=== PATIENT | female | born 1965 | race Caucasian/White ===

== ENCOUNTER 2024-11-17 18:39 | Emergency (ER) | payer SELFPAY ==
[~2024-11-17] VITALS: Ht 162.6 cm; Wt 82.0 kg
[2024-11-17 18:58] VITALS: BP 183/94; PULSE 111; RESP 20; TEMP 97.6; O2SAT 96
[2024-11-17 19:53] LABS: BASOPHILS % (AUTO) 0.4 % (0-1); EOSINOPHILS # (AUTO) 0.1 X10'3 (0-0.9); EOSINOPHILS % (AUTO) 0.6 % (0-6); HEMATOCRIT 43.8 % (35.0-45.0); HEMOGLOBIN 14.4 g/dl (12.0-16.0); LYMPHOCYTES # (AUTO) 1.7 X10'3 (1.1-4.8); LYMPHOCYTES % (AUTO) 15.9 % (21-51); MEAN CORPUSCULAR HEMOGLOBIN 31.7 PG (27.0-31.0); MEAN CORPUSCULAR HGB CONC 32.9 g/dL (33.0-36.5); MEAN CORPUSCULAR VOLUME 96.5 FL (78-98); MONOCYTES # (AUTO) 0.9 X10'3 (0-0.9); MONOCYTES % (AUTO) 8.6 % (2-12); NEUTROPHILS # (AUTO) 8.1 X10'3 (1.8-7.7); NEUTROPHILS % (AUTO) 74.5 % (42-75); PLATELET COUNT 468 X10'3 (140-440); RED BLOOD COUNT 4.54 X10'6 (4.20-5.60); RED CELL DISTRIBUTION WIDTH 15.7 % (11.5-14.5); WHITE BLOOD COUNT 10.9 X10'3 (4.5-11.0)
[2024-11-17 20:03] LABS: APTT 28 SECONDS (22-32); INR 1.2 INR
--- NOTE | 2024-11-17 20:05 | ELECTROCARDIOGRAPH REPORT ---
[facility] Test Date: 2024-11-17 Test Time: 20:03:02 Pat Name: CLAUDIO RAMIREZ Department: PSYCHIATRIC-ER Room: Gender: F [employer] Supervisor: : 1965 Requested By: TIAN ABARCA Order Number: [id number] Reading MD: Dr. Jamey Kaba Measurements Intervals [place] Rate: 119 P: 63 NC: 161 QRS: -76 QRSD: 81 T: 34 QT: 320 QTc: 451 Interpretive Statements Sinus tachycardia Inferior infarct, old Anterior infarct, old Electronically Signed On 11-18-2024 6:40:[address] Jamey Kaba Please click the below link to view image of tracing.
[2024-11-17 20:06] LABS: ANION GAP 13 (8-16); BLOOD UREA NITROGEN 14 MG/DL (7-18); CHLORIDE 104 MMOL/L (99-107); GLUCOSE 111 MG/DL (70-104); POTASSIUM 3.5 MMOL/L (3.5-5.1); SODIUM 137 MMOL/L (135-145); TOTAL CARBON DIOXIDE 19.7 MMOL/L (24-32)
[2024-11-17 20:07] LABS: ALANINE AMINOTRANSFERASE 110 U/L (12-78); ALBUMIN 2.5 G/DL (3.4-5.0); ALBUMIN/GLOBULIN RATIO 0.6 (1.1-1.5); ALKALINE PHOSPHATASE 218 IU/L (46-116); ASPARTATE AMINO TRANSFERASE 30 U/L (10-37); BILIRUBIN,TOTAL 1.8 MG/DL (0.1-1.0); BUN/CREATININE RATIO 12.4 (10.0-20.0); C-REACTIVE PROTEIN 1.79 MG/DL (0.0-0.5); CALCIUM 8.7 MG/DL (8.5-10.1); CREATININE 1.13 MG/DL (0.40-0.90); eCRCL 47 ML/MIN; eGFR 49 ML/MIN
--- NOTE | 2024-11-17 20:14 | RADIOLOGY REPORT ---
Clinical History sepsis Comparison None Without Contrast CLAUDIO RAMIREZ, [id number] Technique: Single view PA upright chest x-ray Findings: The lungs are unremarkable. No pleural abnormality. The cardiomediastinal silhouette is unremarkable for an AP view. No acute osseous abnormality. The imaged part of the upper abdomen is unremarkable. Impression: No evidence of acute cardiopulmonary disease This report was electronically signed by Gela Jacobson MD on 11/17/2024 8:11:44 PM.
--- NOTE | 2024-11-17 20:40 | RADIOLOGY REPORT ---
EXAM: CT CT LOWER EXTREMITY INDICATION: wound lower leg TECHNIQUE: Axial images of left lower extremity have been obtained along with coronal and sagittal re formatted images. All CT scans at this facility use dose modulation, iterative reconstruction, and/or weight based dosing when appropriate to reduce radiation dose to as low as reasonably achievable. COMPARISON: None FINDINGS: BONES: Severe degenerative change of the left midfoot which may be compatible with Charcot arthropath y. No definitive CT evidence of osteomyelitis. No acute fracture or aggressive focal osseous lesion allowing for limitation from susceptibility artifact hardware of the proximal tibialis and distal fe murs compatible with knee replacement with constrained component. Severe collapse of the hindfoot and midfoot with severe pes planus and irregularity of the talus. Superimposed osteomyelitis in this reg ion is difficult to exclude given the extensive cystic/erosive appearance and subsequent overlap of i maging findings. MUSCLES: No abnormal attenuation. JOINT SPACES: No joint effusion.. OTHER: Extensive circumferential subcutaneous tissue edema. No drainable fluid collection. IMPRESSION: 1. No definitive CT evidence of osteomyelitis allowing for limitation. 2. Diffuse suspected cellulitis and/or bland edema. No drainable fluid collection /abscess. 3. Suspected midfoot to hindfoot Charcot arthropathy with subsequent severe collapse /vertical orient ation of the talus. Difficult to exclude osteomyelitis in this region given overlap of imaging tessie pham.
== END 2024-11-17 22:59 | disposition left against medical advice (07) ==
LOC: ER 18:40
DX: S81.812A Laceration without foreign body, left lower leg, initial encounter (principal); I49.8 Other specified cardiac arrhythmias; Z53.21 Procedure and treatment not carried out due to patient leaving prior to being seen by health care provider; X58.XXXA Exposure to other specified factors, initial encounter; Y93.89 Activity, other specified; Y92.89 Other specified places as the place of occurrence of the external cause; Y99.8 Other external cause status
CPT/HCPCS: 36415; 71045; 73700; 80053; 83605; 84145; 84484; 85025; 85610; 85651; 85730; 86140; 87040; 93005

== ENCOUNTER 2024-11-19 13:08 | Inpatient (IN) | payer BC ==
[~2024-11-19] VITALS: Ht 162.6 cm; Wt 83.1 kg
[2024-11-19] MEDS: normal saline 1000ML IV soln IV ONE (14:07)
--- NOTE | 2024-11-19 14:08 | ELECTROCARDIOGRAPH REPORT ---
[facility] Test Date: 2024-11-19 Test Time: 14:05:58 Pat Name: CLAUDIO RAMIREZ Department: [facility]-ER Patient ID: [id number] Room: [place] [address] Gender: F Certified Medication Technician: : 1965 Requested By: TIAN ABRACA Order Number: [id number] Reading MD: Dr. Jamey Kaba Measurements Intervals [place] Rate: 70 P: 29 ND: 185 QRS: -14 QRSD: 102 T: 12 QT: 443 QTc: 479 Interpretive Statements Sinus rhythm Borderline low voltage, extremity leads Consider anterior infarct Electronically Signed On 11-26-2024 11:04:[address] Jamey Kaba Please click the below link to view image of tracing.
--- NOTE | 2024-11-19 14:41 | RADIOLOGY REPORT ---
DI CHEST,SINGLE VIEW, HISTORY: SEPSIS COMPARISON: DI CHEST,SINGLE VIEW on DOS: 11/17/24 DI CHEST,SINGLE VIEW on DOS: 11/17/24 TECHNICAL DATA: 1 view of the chest was obtained. FINDINGS: Lines and tubes: None Cardiomediastinal silhouette: normal Pulmonary vasculature: normal Lung expansion: normal Lung airspace: normal Lung interstitium: normal Pleura: normal Pneumothorax: no Bones: Unremarkable Other: no IMPRESSION: No acute intrathoracic abnormality.
[2024-11-19 14:45] LABS: BASOPHILS % (AUTO) 0.1 % (0-1); EOSINOPHILS % (AUTO) 0.2 % (0-6); HEMATOCRIT 38.8 % (35.0-45.0); HEMOGLOBIN 12.8 g/dl (12.0-16.0); LYMPHOCYTES # (AUTO) 0.8 X10'3 (1.1-4.8); LYMPHOCYTES % (AUTO) 6.6 % (21-51); MEAN CORPUSCULAR HEMOGLOBIN 31.8 PG (27.0-31.0); MEAN CORPUSCULAR HGB CONC 32.8 g/dL (33.0-36.5); MEAN CORPUSCULAR VOLUME 96.9 FL (78-98); MEAN PLATELET VOLUME 7.4 FL (7.4-10.4); MONOCYTES # (AUTO) 0.9 X10'3 (0-0.9); MONOCYTES % (AUTO) 7.3 % (2-12); NEUTROPHILS # (AUTO) 10.3 X10'3 (1.8-7.7); NEUTROPHILS % (AUTO) 85.8 % (42-75); PLATELET COUNT 371 X10'3 (140-440); RED BLOOD COUNT 4.01 X10'6 (4.20-5.60); RED CELL DISTRIBUTION WIDTH 15.7 % (11.5-14.5)
[2024-11-19 15:01] LABS: APTT 29 SECONDS (22-32); INR 1.3 INR
[2024-11-19 15:07] LABS: ALANINE AMINOTRANSFERASE 103 U/L (12-78); ALBUMIN 1.8 G/DL (3.4-5.0); ALBUMIN/GLOBULIN RATIO 0.5 (1.1-1.5); ALKALINE PHOSPHATASE 195 IU/L (46-116); ANION GAP 13 (8-16); ASPARTATE AMINO TRANSFERASE 262 U/L (10-37); BILIRUBIN,TOTAL 1.3 MG/DL (0.1-1.0); BLOOD UREA NITROGEN 14 MG/DL (7-18); BUN/CREATININE RATIO 12.7 (10.0-20.0); CALCIUM 7.8 MG/DL (8.5-10.1); CHLORIDE 106 MMOL/L (99-107); GLUCOSE 142 MG/DL (70-104); POTASSIUM 3.2 MMOL/L (3.5-5.1); SODIUM 138 MMOL/L (135-145); TOTAL CARBON DIOXIDE 18.8 MMOL/L (24-32); TOTAL PROTEIN 5.5 G/DL (6.4-8.2); eCRCL 48 ML/MIN; eGFR 51 ML/MIN
[2024-11-19 15:12] LABS: C-REACTIVE PROTEIN 5.44 MG/DL (0.0-0.5); MAGNESIUM 1.4 MG/DL (1.5-2.4); PRO BRAIN NATRIURETIC PEPTIDE 819 PG/ML (0-125)
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
[2024-11-19] MEDS: clindamycin 300mg/D5W 50mL 50 ML IV STA (16:12)
[2024-11-19] MEDS: metoclopramide 5 mg/ml inj IV ONE ×2 (16:13→20:15)
[2024-11-19] MEDS: HYDROmorphone 1 mg/ml syringe IV ONE ×2 (16:13→20:15)
[2024-11-19] MEDS: diphenhydrAMINE 50 mg/ml inj IV ONE ×2 (16:14→20:15)
[2024-11-19] MEDS: piperacillin/tazo 3.375gm/50ml 50 ML IV STA (18:56)
[2024-11-19 20:06] LABS: BILIRUBIN,URINE SMALL (Neg); CLARITY,URINE CLEAR (Clear); COLOR,URINE YELLOW (Yellow); GLUCOSE, URINE NEGATIVE (Neg); KETONES,URINE NEGATIVE (Neg); LEUKOCYTE ESTERASE ,URINE NEGATIVE (Neg); NITRITES, URINE NEGATIVE (Neg); OCCULT BLOOD,URINE NEGATIVE (Neg); PROTEIN,URINE TRACE mg/dl (Neg)
[2024-11-19 20:11] LABS: UA COLLECTION TYPE NON-SPECIFIED
[2024-11-19 20:13] LABS: BACTERIA,URINE 1+ /HPF (Neg); RBC,URINE 0-2 /HPF (0-2); SQUAMOUS EPITHELIAL CELL,UR MANY /LPF (FEW); TRANSITIONAL EPI CELLS,URINE MODERATE /HPF; WBC,URINE 0-4 /HPF (0-4)
[2024-11-19] MEDS ORDERED: magnesium sulf-water 2g/50mL 50 ML IV PRN ×2 (20:45→23:30)
[2024-11-19] MEDS ORDERED: magnesium sulf-water 4G/100mL 100 ML IV PRN ×2 (20:45→23:30)
[2024-11-19] MEDS ORDERED: mag hydrox/Alum hydrox/simeth 30ml oral suspension PO PRN (20:45)
[2024-11-19] MEDS ORDERED: magnesium hydroxide 30ml (MOM) UD suspension PO PRN (20:45)
[2024-11-19] MEDS ORDERED: magnesium Cl slow-release 64mg tablet PO PRN ×2 (20:45→23:30)
[2024-11-19] MEDS ORDERED: acetaminophen 325mg tablet PO PRN (20:45)
[2024-11-19 21:17] LABS: ETHANOL < 10 MG/DL (<10)
[2024-11-19 21:34] LABS: URINE AMPHETAMINE SCREEN NEGATIVE (Neg); URINE BARBITUATE SCREEN NEGATIVE (Neg); URINE BENZODIAZEPINES SCREEN NEGATIVE (Neg); URINE CANNABINOID SCREEN NEGATIVE (Neg); URINE COCAINE SCREEN NEGATIVE (Neg); URINE METHADONE SCREEN NEGATIVE (Neg); URINE OPIATE SCREEN POSITIVE (Neg); URINE PHENCYCLIDINE SCREEN NEGATIVE (Neg)
[2024-11-19 21:35] LABS: HEMOGLOBIN A1C 5.2 % (4.5-6.2)
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
[2024-11-19] MEDS: vancomycin/NS 1 GM ADD-VANTAGE 250 ML IV SCH (22:20)
[2024-11-19] MEDS ORDERED: potassium Cl 20 mEq SR tablet PO PRN ×2 (23:30)
[2024-11-19] MEDS ORDERED: potassium Cl 40MEQ/1/2NS 520ml 520 ML IV PRN (23:30)
[2024-11-20] VITALS (7 sets, daily range): BP systolic 95–129; BP diastolic 48–65; PULSE 73–88; RESP 14–22; TEMP 97.4–98.9; O2SAT 95–100
[2024-11-20] MEDS: morphine 2 MG/ML inj. syringe IV PRN ×2 (00:51→04:07)
[2024-11-20] MEDS: normal saline 1000ml 1,000 ML IV SCH (00:51)
[2024-11-20] MEDS ORDERED: METO-411 PO (02:25)
[2024-11-20] MEDS ORDERED: GABA-1405 (02:25)
[2024-11-20] MEDS ORDERED: BUPR-480 (02:25)
[2024-11-20] MEDS ORDERED: OMEP40CA21 PO (02:25)
[2024-11-20] MEDS ORDERED: CYCL-1 PO (02:25)
[2024-11-20] MEDS ORDERED: VALS160T30 PO (02:25)
[2024-11-20] MEDS ORDERED: HYDR-3972 PO (02:25)
[2024-11-20] MEDS ORDERED: CYAN10007 IM (02:25)
[2024-11-20] MEDS ORDERED: ONDA-245 (02:25)
[2024-11-20] MEDS ORDERED: ESTR1TAB28 PO (02:25)
[2024-11-20] MEDS ORDERED: VALA100031 PO (02:25)
[2024-11-20] MEDS ORDERED: FURO20TA4 PO (02:25)
[2024-11-20] MEDS ORDERED: IBUP-1986 PO (02:25)
[2024-11-20] MEDS: piperacillin/tazo 4.5gm/100ml 100 ML IV SCH (03:02)
[2024-11-20 03:55] LABS: BASOPHILS % (AUTO) 0.3 % (0-1); EOSINOPHILS # (AUTO) 0.1 X10'3 (0-0.9); EOSINOPHILS % (AUTO) 0.7 % (0-6); HEMATOCRIT 41.6 % (35.0-45.0); HEMOGLOBIN 13.7 g/dl (12.0-16.0); LYMPHOCYTES # (AUTO) 0.6 X10'3 (1.1-4.8); LYMPHOCYTES % (AUTO) 5.1 % (21-51); MEAN CORPUSCULAR HEMOGLOBIN 31.9 PG (27.0-31.0); MEAN CORPUSCULAR HGB CONC 32.9 g/dL (33.0-36.5); MEAN CORPUSCULAR VOLUME 96.9 FL (78-98); MEAN PLATELET VOLUME 7.2 FL (7.4-10.4); MONOCYTES # (AUTO) 0.7 X10'3 (0-0.9); MONOCYTES % (AUTO) 5.7 % (2-12); NEUTROPHILS # (AUTO) 10.3 X10'3 (1.8-7.7); NEUTROPHILS % (AUTO) 88.2 % (42-75); PLATELET COUNT 348 X10'3 (140-440); RED BLOOD COUNT 4.29 X10'6 (4.20-5.60); RED CELL DISTRIBUTION WIDTH 15.9 % (11.5-14.5); WHITE BLOOD COUNT 11.6 X10'3 (4.5-11.0)
[2024-11-20] MEDS: potassium Cl 20 mEq SR tablet PO PRN ×2 (03:59→19:02)
[2024-11-20 04:17] LABS: ALANINE AMINOTRANSFERASE 251 U/L (12-78); ALBUMIN/GLOBULIN RATIO 0.5 (1.1-1.5); ALKALINE PHOSPHATASE 257 IU/L (46-116); ANION GAP 14 (8-16); ASPARTATE AMINO TRANSFERASE 840 U/L (10-37); BILIRUBIN,TOTAL 1.8 MG/DL (0.1-1.0); BLOOD UREA NITROGEN 14 MG/DL (7-18); BUN/CREATININE RATIO 13.5 (10.0-20.0); CHLORIDE 110 MMOL/L (99-107); CHOL/HDL RATIO 1.4 (0.00-4.99); CHOLESTEROL 98 MG/DL (0-200); CREATININE 1.04 MG/DL (0.40-0.90); GLUCOSE 98 MG/DL (70-104); HDL CHOLESTEROL 68 MG/DL (35-60); LDL CHOLESTEROL 25 MG/DL (50-100); MAGNESIUM 1.7 MG/DL (1.5-2.4); SODIUM 142 MMOL/L (135-145); TRIGLYCERIDES 55 MG/DL (20-135); eCRCL 51 ML/MIN; eGFR 54 ML/MIN
[2024-11-20] MEDS: pantoprazole 40mg Tablet.DR PO SCH (07:30)
--- NOTE | 2024-11-20 07:35 | RADIOLOGY REPORT ---
INDICATION: Ultrasound of your for possible cirrhosis TECHNIQUE: Multiple real-time sonographic images of the abdomen were obtained. COMPARISON: None FINDINGS: The liver is heterogeneous in echogenicity. The liver measures 18.4 cm. No intrahepatic bi liary ductal dilatation is noted. The gallbladder is surgically absent. The common bile duct measures 0.2 cm. The right kidney measures 9.8 cm. No hydronephrosis. The pancreas is obscured by bowel gas. The visualized portions of the IVC and aorta are grossly unremarkable. IMPRESSION: 1. Heterogeneous echotexture of the liver suggesting underlying parenchymal disease. No nodular conto ur appreciated. 2. Cholecystectomy. 3. No right hydronephrosis.
[2024-11-20] MEDS: K and/or MAG REPLACEMENT MC SCH (08:00)
[2024-11-20] MEDS ORDERED: K and/or MAG REPLACEMENT MC SCH (08:00)
[2024-11-20] MEDS: lactose-reduced food (Ensure High Protein) 237ml bottle PO SCH (08:00)
[2024-11-20] MEDS: docusate sod 100mg capsule PO SCH (08:00)
[2024-11-20] MEDS: aspirin 81mg, enteric-coated 1 TAB TABLET.DR PO SCH (08:31)
[2024-11-20] MEDS: atorvastatin 20mg tablet PO SCH (08:32)
[2024-11-20] MEDS: heparin, porcine 5000 units/ml vial SQ SCH (08:33)
--- NOTE | 2024-11-20 10:09 | VASCULAR REPORT ---
Bilateral lower extremity venous duplex Clinical History: Bilateral edema Comparison: None Technique: Duplex Doppler evaluation of the deep venous systems of both lower extremities from the common femora l veins to the popliteal veins including color Doppler and spectral/pulsed waveform analysis was perf ormed. Findings: RIGHT SIDE: The common femoral vein demonstrates appropriate compressibility and waveform variability . There is compressibility/patency of the great saphenous vein at the proximal thigh . The femoral vein demonstrates appropriate compressibility and waveform variability . The deep femoral vein demonstrates appropriate compressibility and waveform variability . The popliteal vein demonstrates appropriate compressibility and waveform variability . There is normal compressibility at the tibioperoneal trunk. LEFT SIDE: The common femoral vein demonstrates appropriate compressibility and waveform variability . There is compressibility/patency of the great saphenous vein at the proximal thigh . The femoral vein demonstrates appropriate compressibility and waveform variability . The deep femoral vein demonstrates appropriate compressibility and waveform variability . The popliteal vein demonstrates appropriate compressibility and waveform variability . There is normal compressibility at the tibioperoneal trunk. Impression: No right or left femoropopliteal venous thrombosis.
--- NOTE | 2024-11-20 10:09 | VASCULAR REPORT ---
Bilateral Lower Extremity Arterial Duplex Clinical History: Diminished pulses Comparison: None Technique: Duplex Doppler evaluation including color Doppler and spectral/pulsed waveform analysis of the lower extremity arteries was performed. Findings: RIGHT: Peak systolic velocities are less than 150 cm/sec The waveforms are multiphasic . LEFT: Peak systolic velocities are less than 150 cm/sec. Nonvisualization of the left peroneal artery. The waveforms are multiphasic. IMPRESSION: No hemodynamically significant stenosis based on peak systolic velocity criteria. REFERENCE VALUES, [facility]) vascular Imaging Lab Criteria: Peak systolic velocity rang es (in cm/sec) are as follows: <150 cm/s - <20 % stenosis 150-200 cm/s - 20-49% stenosis 200-300 cm/s - 50-75% stenosis >300 cm/s -> 75% stenosis
[2024-11-20] MEDS: sodium bicarbonate (8.4%) inj. 100 MEQ in dextrose 5%-water 1,000 ML IV SCH (10:22)
--- NOTE | 2024-11-20 11:02 | PROGRESS NOTE ---
Progress Note ID Providers to CC ~ Progress Note Progress Note: arterial doppler noted/needs leg debridement when cleared medically AMARIS ADAMS MD November 20, 2024 11:02
[2024-11-20] MEDS: potassium Cl 40MEQ/1/2NS 520ml 520 ML IV PRN (11:29)
--- NOTE | 2024-11-20 17:00 | PROGRESS NOTE- Residence ---
Progress Note - Resident Providers to CC Resident Creating Document: CARLOTA HERNÁNDEZ, SUZY CC: MONA SARMIENTO MD ~ Antibiotic Timeout Antibiotic Ordered?: Yes Subjective Patient examined at bedside. Patient seems to be in pain. Objective Vital Signs Date Time Temp Pulse Resp B/P (MAP) Pulse Ox O2 Delivery O2 Flow Rate FiO2 11/20/24 06:00 97.4 73 14 121/61 (81) 99 Room Air 11/19/24 17:00 0 Result Diagram: 11/20/24 0341 11/20/24 0341 General: Alert, awake, oriented, not in acute distress HEENT: PERRLA, no icterus, pallor, lymphadenopathy, carotid bruit Respiratory system: Bilateral vesicular breath sounds heard, no adventitious breath sounds CVS: S1-S2 heard, no murmurs/rubs/gallop GI: Soft, nontender, no organomegaly, no guarding/rigidity, bowel sounds present Neuro: No focal neurological deficits present Extremities: No edema cyanosis clubbing Musculoskeletal: Left lower leg Positive for a odorous and purulent discharge with macerated skin extending from the distal 3rd of the tibia extending to the ankle in encompassing the entire lower extremity circumferentially. Positive for significant tenderness to palpation. Bluish green discoloration present. Skin: Warm and dry Coagulation Studies Laboratory Tests Test 11/19/24 14:20 Prothrombin Time 13.0 SECONDS (9.0-12.0) H INR International Normalized Ratio 1.3 INR Activated Partial Thromboplast Time 29 SECONDS (22-32) Coagulation Comments Assessment Assessment This is a 59-year-old female with past medical history of hypertension, rheumatoid arthritis came to the ER with a chief complaint of left lower leg wound which appears to be infected. Patient is being admitted for sepsis secondary to infected wound. Dr. Best has been consulted for debridement. Plan Plan Left lower leg infected wound Chronic nonhealing ulcer Sepsis secondary to above, POA Charcot arthropathy WBC count improving, elevated procalcitonin and CRP, continue to follow daily prolactin Normal lactic acid, ESR Vascular and arterial ultrasound reveals no significant abnormalities like stenosis or no flow Continue IV fluids at 50 cc/hour Continue IV vancomycin and Zosyn (day two) Wound care Follow up with the wound and blood culture Dr. Best recommended medical clearance before debridement, probable surgery scheduled after 8:00 a.m. tomorrow PAD, ruled out LAURENCE, vascular and arterial ultrasounds ordered. Continue atorvastatin Elevated proBNP Probably inflammatory ProBNP is 819 Echo: EF: 70-75%, LVOT obstruction Patient does not appear to be fluid overloaded, on NS@ 50 mL/hour for sepsis. Elevated transaminases Elevated alkaline phosphatase Hyperbilirubinemia Probably reactive Continue to monitor CMP If continues to be elevated we will do further workup Ultrasound reveals parenchymal disease of the Hypomagnesemia Hypokalemia Magnesium and potassium improving On potassium replacement protocol Follow up with repeat labs. History of hypertension Currently blood pressure is in the normal range Continue patient's home medication valsartan once the med rec is done. Hypoalbuminemia Albumin 1.8 History of peripheral neuropathy Continue patient's home medication gabapentin once the med rec is done Code status: DNR DVT prophylaxis: Heparin Diet: Regular diet Med rec pending Disposition: Continue care in surgical floor, probable surgery after medical clearance, NPO after 8:00 a.m. Carlota Hernández MD Internal Medicine, PGY 1 Date of Service: November 20, 2024 Billing Provider: MONA SARMIENTO MD Common Visit Codes: [id number] INP/OBS CARE(HIGH) CARLOTA HERNÁNDEZ, RES November 20, 2024 17:00 MONA SARMIENTO MD November 20, 2024 18:43
[2024-11-21] VITALS (21 sets, daily range): BP systolic 91–128; BP diastolic 48–80; PULSE 59–84; RESP 12–18; TEMP 96.6–98.7; O2SAT 93–100
[2024-11-21] MEDS: HYDROcodone/acetaminophen 5mg/325mg tablet PO PRN (04:52)
[2024-11-21 06:08] LABS: BASOPHILS # (AUTO) 0.1 X10'3 (0-0.2); BASOPHILS % (AUTO) 0.6 % (0-1); EOSINOPHILS # (AUTO) 0.1 X10'3 (0-0.9); EOSINOPHILS % (AUTO) 0.8 % (0-6); HEMOGLOBIN 13.3 g/dl (12.0-16.0); LYMPHOCYTES # (AUTO) 1.4 X10'3 (1.1-4.8); LYMPHOCYTES % (AUTO) 13.8 % (21-51); MEAN CORPUSCULAR HEMOGLOBIN 32.1 PG (27.0-31.0); MEAN CORPUSCULAR HGB CONC 32.4 g/dL (33.0-36.5); MEAN CORPUSCULAR VOLUME 98.9 FL (78-98); MEAN PLATELET VOLUME 7.6 FL (7.4-10.4); MONOCYTES # (AUTO) 0.8 X10'3 (0-0.9); MONOCYTES % (AUTO) 7.7 % (2-12); NEUTROPHILS # (AUTO) 7.7 X10'3 (1.8-7.7); NEUTROPHILS % (AUTO) 77.1 % (42-75); PLATELET COUNT 358 X10'3 (140-440); RED BLOOD COUNT 4.15 X10'6 (4.20-5.60); RED CELL DISTRIBUTION WIDTH 16.7 % (11.5-14.5); WHITE BLOOD COUNT 9.9 X10'3 (4.5-11.0)
[2024-11-21 08:55] LABS: ALANINE AMINOTRANSFERASE 157 U/L (12-78); ALBUMIN 1.3 G/DL (3.4-5.0); ALBUMIN/GLOBULIN RATIO 0.4 (1.1-1.5); ALKALINE PHOSPHATASE 178 IU/L (46-116); ANION GAP 8 (8-16); ASPARTATE AMINO TRANSFERASE 224 U/L (10-37); BILIRUBIN,TOTAL 1.3 MG/DL (0.1-1.0); BLOOD UREA NITROGEN 9 MG/DL (7-18); BUN/CREATININE RATIO 10.3 (10.0-20.0); CHLORIDE 113 MMOL/L (99-107); CREATININE 0.87 MG/DL (0.40-0.90); GLUCOSE 143 MG/DL (70-104); MAGNESIUM 1.5 MG/DL (1.5-2.4); POTASSIUM 3.8 MMOL/L (3.5-5.1); SODIUM 141 MMOL/L (135-145); TOTAL CARBON DIOXIDE 20.3 MMOL/L (24-32); TOTAL PROTEIN 4.2 G/DL (6.4-8.2); eCRCL 61 ML/MIN; eGFR 67 ML/MIN
[2024-11-21] MEDS ORDERED: HYDROcodone/acetaminophen 10/325mg tab PO PRN (08:55)
[2024-11-21] MEDS ORDERED: morphine/NS 1 mg/ml 50ml PCA 50 ML IV PRN (08:55)
[2024-11-21] MEDS: VANCOMYCIN LEVEL IV ONE (09:30)
[2024-11-21] MEDS: HYDROcodone/acetaminophen 10/325mg tab PO PRN (09:46)
--- NOTE | 2024-11-21 10:57 | PROGRESS NOTE ---
Progress Note ID Providers to CC ~ Progress Note Progress Note: discussed procedure including risks/benefits/alternatives AMARIS ADAMS MD November 21, 2024 10:57
--- NOTE | 2024-11-21 12:23 | CARDIOLOGY REPORT ---
APPROVED REPORT EXAM: Comprehensive 2D, Doppler, and color-flow Echocardiogram. Patient Location: 344 A Blood Pressure: 121/61 mmHg Heart Rate: 79 bpm Rhythm: SINUS Indications CARDIOMYOPATHY ELEVATED PROBNP (819) HYPERTENSION SEPSIS Government Employee: none Previous echo: none 2D Dimensions IVSd 1.2 (0.7-1.1cm) LVDd 4.0 cm PWd 1.2 (0.7-1.1cm) IVSs 1.5 (0.8-1.2cm) LVDs 2.4 (2.5-4.0cm) PWs 1.7 (0.8-1.2cm) LVOT Diameter 2.03 (1.8-2.4cm) LVEF(%) 71.3 (>50%) Ao Asc Diam.3.38 cmIVC 21.80 mm FS (%) 40.1 % SV 48.8 ml CO 4.0 L/min M-Mode Dimensions Left Atrium(MM) 3.43 (2.5-4.0cm) Aortic Root 3.02 (2.2-3.7cm) Aortic Cusp Exc 1.51 (1.5-2.0cm) Aortic Valve AoV Peak Osito. 189.4 cm/s AoV VTI 44.2 cm AO Peak GR. 14.4 mmHg AO Mean GR. 8 mmHg LVOT VTI 38.74 cm LVOT Peak Osito. 162.5 cm/s FLORENTINO(VTI)/BSA 2.84 cm2/m2 FLORENTINO (VTI) 2.84 cm2 Mitral Valve MV E Velocity 110.0 cm/s MV Peak Gr. 6 mmHg MV DECEL TIME 272 ms MV A Velocity 95.4 cm/s MV PHT 52 ms E/A Ratio 1.2 MVA (PHT) 4.23 cm2 MV RXdv570.1 cm/s TDI Medial E' P. V 17.64 cm/s E/Medial E' 6.2 Tricuspid Valve TR P. Velocity 239 cm/s RAP ESTIMATE 10 mmHg TR Peak Gr. 23 mmHg RVSP 33 mmHg Pulmonary Vein S1 Velocity 47.6 cm/s D2 Velocity 41.5 cm/s PVa Lwasspuf12.4 cm/s PVa [id number] msec LEFT VENTRICLE Normal LV size and hyperdynamic function. Mild concentric hypertrophy. Appearance of LVOT obstruction due to hyperdynamic LV function. LV gradient of 11 mmHg and does not increase with Valsalva maneuver . Overall LVEF is 70-75%. RIGHT VENTRICLE RV is normal size and function. RVSP is estimated at 33 mmHg. ATRIA LA size is normal. AORTIC VALVE Trileaflet AV appears mildly sclerotic without stenosis or insufficiency. MITRAL VALVE Mild MV annular calcification without stenosis. Trace regurgitation. TRICUSPID VALVE TV appears structurally normal with trace regurgitation. PULMONIC VALVE Normal PV without stenosis, physiologic insufficiency. GREAT VESSELS Aortic root is normal in size. Ascending aorta is normal in size. IVC is dilated and collapses less t johnson 50% with inspiration. PERICARDIUM Normal pericardium. No effusion. Other Information Study Quality: Adequate Conclusion Overall LVEF is 70-75%. Normal LV size and hyperdynamic function. Mild concentric hypertrophy. Appearance of LVOT obstructio n due to hyperdynamic LV function. LV gradient of 11 mmHg and does not increase with Valsalva maneuve r. RV is normal size and function. RVSP is estimated at 33 mmHg. Trileaflet AV appears mildly sclerotic without stenosis or insufficiency. Mild MV annular calcification without stenosis. Trace regurgitation. TV appears structurally normal with trace regurgitation. Normal PV without stenosis, physiologic insufficiency. Normal pericardium. No effusion.
[2024-11-21] MEDS ORDERED: morphine 4 MG/ML inj SYRINge IV PRN ×3 (13:05→20:21)
[2024-11-21] MEDS ORDERED: labetalol 20mg/4ml (5mg/ml) syringe IV PRN (13:05)
[2024-11-21] MEDS: ringers solution, lacted 1,000 ML IV SCH (13:05)
[2024-11-21] MEDS ORDERED: morphine 2 MG/ML inj. syringe IV PRN ×2 (13:05)
[2024-11-21] MEDS ORDERED: hydrALAZINE 20mg/ml inj. IV PRN (13:05)
[2024-11-21] MEDS ORDERED: midazolam 1 mg/ML 2ml injection ONE (13:29)
[2024-11-21] MEDS ORDERED: fentaNYL/PF 50MCG/1 ML 2ML syringe ONE ×3 (13:29→13:47)
[2024-11-21] MEDS ORDERED: propofol inj 20 ML IV ONE (13:35)
[2024-11-21] MEDS ORDERED: LIDOcaine 2% (20mg/ml) 5ml vial ONE (13:36)
[2024-11-21] MEDS ORDERED: dexamethasone sod phosphate 4mg/ml inj. ONE (13:40)
[2024-11-21] MEDS ORDERED: acetaminophen 1,000mg/100ml IV 100 ML IV ONE (13:40)
[2024-11-21] MEDS ORDERED: ondansetron/PF 4mg/2ml inj ONE (13:41)
[2024-11-21] MEDS ORDERED: desflurane 240ml liquid inh. IH ONE (13:43)
--- NOTE | 2024-11-21 14:13 | OPERATIVE REPORT ---
Operative Report Providers to CC ~ Date of Procedure: November 21, 2024 Pre-Operative Diagnosis: sepsis/ Lower extremity wound Post-Operative Diagnosis SAME as PRE-Op Procedure Performed LLE wound debridement-200 cm 2 Surgeon: wes Excavator Operator none Anesthesiologist: Jasper Fontenot Type of Anesthesia: General Findings: full thickness wound infection Estimated Blood Loss: 50 ml Specimen Removed: debridement-skin and subq AMARIS ADAMS MD November 21, 2024 14:13
[2024-11-21] MEDS ORDERED: naloxone 0.4 mg/ml inj IV PRN (14:15)
[2024-11-21] MEDS ORDERED: HYDROcodone/acetaminophen 5mg/325mg tablet PO PRN (14:15)
[2024-11-21] MEDS ORDERED: PCA WASTE DOCUMENTATION 1 MG ML MC SCH (14:15)
[2024-11-21] MEDS ORDERED: sodium bicarbonate (8.4%) inj. 100 MEQ in dextrose 5%-water 1,000 ML IV SCH (14:30)
[2024-11-21] MEDS: ondansetron/PF 4mg/2ml inj IV PRN (14:31)
--- NOTE | 2024-11-21 14:32 | PROGRESS NOTE- Residence ---
Progress Note - Resident Providers to CC Resident Creating Document: CARLOTA HERNÁNDEZ, SUZY CC: MONA SARMIENTO MD ~ Antibiotic Timeout Antibiotic Ordered?: Yes Subjective Patient examined at bedside. Patient seems to be in pain. Patient's wound is dressed, was having a lot of pus and blackish discoloration. Objective Vital Signs Date Time Temp Pulse Resp B/P (MAP) Pulse Ox O2 Delivery O2 Flow Rate FiO2 11/21/24 14:14 98.8 80 16 116/77 (90) 100 Mask 10.0 Result Diagram: 11/21/24 0518 11/21/24 0726 General: Alert, awake, oriented, not in acute distress HEENT: PERRLA, no icterus, pallor, lymphadenopathy, carotid bruit Respiratory system: Bilateral vesicular breath sounds heard, no adventitious breath sounds CVS: S1-S2 heard, no murmurs/rubs/gallop GI: Soft, nontender, no organomegaly, no guarding/rigidity, bowel sounds present Neuro: No focal neurological deficits present Extremities: No edema cyanosis clubbing Musculoskeletal: Left lower leg has odorous and purulent discharge with macerated skin extending from the distal 3rd of the tibia extending to the ankle in encompassing the entire lower extremity circumferentially. Positive for significant tenderness to palpation. Bluish green discoloration present. Skin: Warm and dry Coagulation Studies Laboratory Tests Test 11/19/24 14:20 Prothrombin Time 13.0 SECONDS (9.0-12.0) H INR International Normalized Ratio 1.3 INR Activated Partial Thromboplast Time 29 SECONDS (22-32) Coagulation Comments Assessment Assessment This is a 59-year-old female with past medical history of hypertension, rheumatoid arthritis came to the ER with a chief complaint of left lower leg wound which appears to be infected. Patient is being admitted for sepsis secondary to infected wound. Dr. Best has been consulted for debridement. Plan Plan Left lower leg infected wound Chronic nonhealing ulcer Sepsis secondary to above, POA Charcot arthropathy Normal anion gap acidosis WBC count improving, elevated procalcitonin and CRP, continue to follow daily prolactin Normal lactic acid, ESR Vascular and arterial ultrasound reveals no significant abnormalities like stenosis or no flow Continue IV fluids at 50 cc/hour and half-normal saline with three amps bicarb drip Continue IV vancomycin and Zosyn (day 3) Wound care Follow up with the wound and blood culture Dr. Best recommended medical clearance before debridement, probable surgery scheduled today/tomorrow PAD, ruled out LAURENCE, vascular and arterial ultrasounds ordered. Continue atorvastatin Elevated proBNP Probably inflammatory ProBNP is 819 Echo: EF: 70-75%, LVOT obstruction Patient does not appear to be fluid overloaded, on NS@ 50 mL/hour for sepsis. Elevated transaminases, downtrending Elevated alkaline phosphatase Hyperbilirubinemia Probably reactive Continue to monitor CMP If continues to be elevated we will do further workup Ultrasound reveals parenchymal disease of the Hypomagnesemia Hypokalemia Magnesium and potassium improving On potassium replacement protocol Follow up with repeat labs. History of hypertension Currently blood pressure is in the normal range Home meds: Metoprolol and valsartan started Hold for SBP less than 90 mmHg Hypoalbuminemia Albumin 1.8 History of peripheral neuropathy Code status: DNR DVT prophylaxis: Heparin Diet: Regular diet Disposition: Continue care in surgical floor, probable surgery after medical clearance, probable surgery today Carlota Hernández MD Internal Medicine, PGY 1 Date of Service: November 21, 2024 Billing Provider: MONA SARMIENTO MD Common Visit Codes: [id number] INP/OBS CARE(HIGH) CARLOTA HERNÁNDEZ, RES November 21, 2024 14:32 MONA SARMIENTO MD November 21, 2024 18:41
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
[2024-11-21] MEDS: cyanocobalamin 1,000 mcg/ml inj IM SCH (17:44)
[2024-11-21] MEDS: cyclobenzaprine 10mg tablet PO SCH (20:16)
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
[2024-11-22] MEDS: HYDROmorphone inj. 0.5 MG/0.5 ML DISP.SYRIN IV PRN (03:06)
[2024-11-22 06:00] VITALS: BP 118/69; PULSE 65; RESP 14; TEMP 96.9; O2SAT 96
[2024-11-22 06:03] LABS: BASOPHILS % (AUTO) 0.1 % (0-1); EOSINOPHILS % (AUTO) 0 % (0-6); HEMATOCRIT 35.4 % (35.0-45.0); HEMOGLOBIN 11.6 g/dl (12.0-16.0); LYMPHOCYTES # (AUTO) 0.7 X10'3 (1.1-4.8); LYMPHOCYTES % (AUTO) 12.3 % (21-51); MEAN CORPUSCULAR HEMOGLOBIN 31.6 PG (27.0-31.0); MEAN CORPUSCULAR HGB CONC 32.7 g/dL (33.0-36.5); MEAN CORPUSCULAR VOLUME 96.6 FL (78-98); MEAN PLATELET VOLUME 7.9 FL (7.4-10.4); MONOCYTES # (AUTO) 0.1 X10'3 (0-0.9); MONOCYTES % (AUTO) 2.3 % (2-12); NEUTROPHILS # (AUTO) 4.9 X10'3 (1.8-7.7); NEUTROPHILS % (AUTO) 85.3 % (42-75); PLATELET COUNT 288 X10'3 (140-440); RED BLOOD COUNT 3.66 X10'6 (4.20-5.60); RED CELL DISTRIBUTION WIDTH 16.8 % (11.5-14.5); WHITE BLOOD COUNT 5.8 X10'3 (4.5-11.0)
[2024-11-22 07:32] LABS: ALANINE AMINOTRANSFERASE 131 U/L (12-78); ALBUMIN 1.4 G/DL (3.4-5.0); ALBUMIN/GLOBULIN RATIO 0.4 (1.1-1.5); ALKALINE PHOSPHATASE 188 IU/L (46-116); ANION GAP 10 (8-16); ASPARTATE AMINO TRANSFERASE 87 U/L (10-37); BILIRUBIN,TOTAL 0.9 MG/DL (0.1-1.0); BLOOD UREA NITROGEN 8 MG/DL (7-18); BUN/CREATININE RATIO 8.7 (10.0-20.0); CALCIUM 7.2 MG/DL (8.5-10.1); CHLORIDE 108 MMOL/L (99-107); CREATININE 0.92 MG/DL (0.40-0.90); GLUCOSE 188 MG/DL (70-104); MAGNESIUM 1.5 MG/DL (1.5-2.4); POTASSIUM 3.5 MMOL/L (3.5-5.1); SODIUM 141 MMOL/L (135-145); TOTAL CARBON DIOXIDE 22.8 MMOL/L (24-32); TOTAL PROTEIN 4.7 G/DL (6.4-8.2); eCRCL 58 ML/MIN; eGFR 63 ML/MIN
[2024-11-22 08:00] VITALS: RESP 17; O2SAT 97
[2024-11-22] MEDS ORDERED: non-formulary drug (Omeprazole (Prilosec) 1 CAP) PO SCH (08:00)
[2024-11-22] MEDS: losartan 50mg tablet PO SCH (08:13)
[2024-11-22] MEDS: metoprolol succinate 25mg (24-HOUR) SR. Tablet PO SCH (08:13)
[2024-11-22 10:00] VITALS: BP 101/58; PULSE 74; RESP 17; TEMP 97.9; O2SAT 100
[2024-11-22] MEDS: morphine 4 MG/ML inj SYRINge IV PRN (10:40)
[2024-11-22] MEDS: ondansetron/PF 4mg/2ml inj IV PRN (10:47)
--- NOTE | 2024-11-22 17:04 | PROGRESS NOTE- Residence ---
Progress Note - Resident Providers to CC Resident Creating Document: CARLOTA HERNÁNDEZ RES CC: ABHILASH BAILEY MD ~ Antibiotic Timeout Antibiotic Ordered?: Yes Subjective Patient examined at bedside. Patient says her pain is well-controlled. Patient does not have any other complaints. Objective Vital Signs Date Time Temp Pulse Resp B/P (MAP) Pulse Ox O2 Delivery O2 Flow Rate FiO2 11/22/24 16:07 16 11/22/24 10:00 97.9 74 101/58 (72) 100 Room Air 11/21/24 20:00 0.0 Result Diagram: 11/22/24 0510 11/22/24 0510 General: Alert, awake, oriented, not in acute distress HEENT: PERRLA, no icterus, pallor, lymphadenopathy, carotid bruit Respiratory system: Bilateral vesicular breath sounds heard, no adventitious breath sounds CVS: S1-S2 heard, no murmurs/rubs/gallop GI: Soft, nontender, no organomegaly, no guarding/rigidity, bowel sounds present Neuro: No focal neurological deficits present Extremities: No edema cyanosis clubbing Musculoskeletal: Left lower leg has odorous and purulent discharge with macerated skin extending from the distal 3rd of the tibia extending to the ankle in encompassing the entire lower extremity circumferentially, currently has surgical dressing. Skin: Warm and dry Coagulation Studies Laboratory Tests Test 11/19/24 14:20 Prothrombin Time 13.0 SECONDS (9.0-12.0) H INR International Normalized Ratio 1.3 INR Activated Partial Thromboplast Time 29 SECONDS (22-32) Coagulation Comments Assessment Assessment This is a 59-year-old female with past medical history of hypertension, rheumatoid arthritis came to the ER with a chief complaint of left lower leg wound which appears to be infected. Patient is being admitted for sepsis secondary to infected wound. Patient underwent debridement on 11/21/2024. Plan Plan Left lower leg infected wound Chronic nonhealing ulcer status post debridement on 11/21/24 Sepsis secondary to above, POA Charcot arthropathy PAD, ruled out Normal anion gap acidosis WBC count normal, procalcitonin, downtrending and CRP, continue to follow daily prolactin Continue IV fluids at 50 cc/hour and half-normal saline with three amps bicarb drip Continue IV vancomycin and Zosyn (day 3) Wound care Follow up with the wound and blood culture Management per Dr. Best's recommendations HLD Continue atorvastatin Elevated proBNP Probably inflammatory ProBNP is 819 Echo: EF: 70-75%, LVOT obstruction Patient does not appear to be fluid overloaded, on NS@ 50 mL/hour for sepsis. Elevated transaminases, downtrending Elevated alkaline phosphatase Hyperbilirubinemia Probably reactive, downtrending Continue to monitor CMP If continues to be elevated we will do further workup Ultrasound reveals parenchymal disease of the Hypomagnesemia Hypokalemia Magnesium and potassium improving On potassium replacement protocol Follow up with repeat labs. History of hypertension Currently blood pressure is in the normal range Home meds: Continue Metoprolol and valsartan Hold for SBP less than 90 mmHg Hypoalbuminemia Albumin 1.8 History of peripheral neuropathy Code status: DNR DVT prophylaxis: Heparin Diet: Regular diet Disposition: Continue care in surgical floor, discharge plan after PT assessment Carlota Hernández MD Internal Medicine, PGY 1 Date of Service: November 22, 2024 Billing Provider: ABHILASH BAILEY MD, SIVA, RES November 22, 2024 17:04
[2024-11-22 17:14] LABS: C-REACTIVE PROTEIN 3.48 MG/DL (0.0-0.5)
[2024-11-22 18:30] VITALS: BP 114/70; PULSE 67; RESP 17; TEMP 97.5; O2SAT 97
[2024-11-22 22:00] VITALS: BP 106/66; PULSE 63; RESP 18; TEMP 98; O2SAT 99
[2024-11-23 09:32] LABS: BASOPHILS % (AUTO) 0.1 % (0-1); EOSINOPHILS % (AUTO) 0.2 % (0-6); HEMATOCRIT 40.9 % (35.0-45.0); HEMOGLOBIN 13.5 g/dl (12.0-16.0); LYMPHOCYTES # (AUTO) 1.9 X10'3 (1.1-4.8); LYMPHOCYTES % (AUTO) 20.6 % (21-51); MEAN CORPUSCULAR HEMOGLOBIN 32.1 PG (27.0-31.0); MEAN CORPUSCULAR HGB CONC 33.1 g/dL (33.0-36.5); MEAN CORPUSCULAR VOLUME 96.9 FL (78-98); MEAN PLATELET VOLUME 7.8 FL (7.4-10.4); MONOCYTES # (AUTO) 0.4 X10'3 (0-0.9); MONOCYTES % (AUTO) 4.4 % (2-12); NEUTROPHILS # (AUTO) 6.8 X10'3 (1.8-7.7); NEUTROPHILS % (AUTO) 74.7 % (42-75); PLATELET COUNT 378 X10'3 (140-440); RED BLOOD COUNT 4.22 X10'6 (4.20-5.60); RED CELL DISTRIBUTION WIDTH 16.4 % (11.5-14.5); WHITE BLOOD COUNT 9.1 X10'3 (4.5-11.0)
[2024-11-23 09:40] LABS: ALANINE AMINOTRANSFERASE 112 U/L (12-78); ALBUMIN 1.8 G/DL (3.4-5.0); ALBUMIN/GLOBULIN RATIO 0.5 (1.1-1.5); ALKALINE PHOSPHATASE 205 IU/L (46-116); ANION GAP 6 (8-16); ASPARTATE AMINO TRANSFERASE 45 U/L (10-37); BILIRUBIN,TOTAL 1.1 MG/DL (0.1-1.0); BLOOD UREA NITROGEN 11 MG/DL (7-18); BUN/CREATININE RATIO 12.5 (10.0-20.0); CALCIUM 8.1 MG/DL (8.5-10.1); CHLORIDE 107 MMOL/L (99-107); CREATININE 0.88 MG/DL (0.40-0.90); GLUCOSE 109 MG/DL (70-104); MAGNESIUM 1.6 MG/DL (1.5-2.4); SODIUM 141 MMOL/L (135-145); TOTAL CARBON DIOXIDE 28.5 MMOL/L (24-32); TOTAL PROTEIN 5.7 G/DL (6.4-8.2); eCRCL 60 ML/MIN; eGFR 66 ML/MIN
[2024-11-23] MEDS ORDERED: magnesium sulf-water 4G/100mL 100 ML IV PRN (10:15)
[2024-11-23] MEDS: potassium Cl 20 mEq SR tablet PO PRN (11:25)
[2024-11-23] MEDS: PARoxetine 10mg tablet PO SCH (14:38)
--- NOTE | 2024-11-23 16:22 | PROGRESS NOTE- Residence ---
Progress Note - Resident Providers to CC Resident Creating Document: CARLOTA HERNÁNDEZ RES CC: ABHILASH BAILEY MD ~ Antibiotic Timeout Antibiotic Ordered?: Yes Subjective Patient examined at bedside. Patient says her pain is well-controlled. Patient does not have any other complaints. Patient was in tears when asked about how the injury happened. Objective Vital Signs Date Time Temp Pulse Resp B/P (MAP) Pulse Ox O2 Delivery O2 Flow Rate FiO2 11/23/24 14:38 16 11/23/24 08:00 Room Air 0.0 11/23/24 07:53 88 11/22/24 22:00 98.0 106/66 (79) 99 Result Diagram: 11/23/2480411/23/24804 General: Alert, awake, oriented, not in acute distress HEENT: PERRLA, no icterus, pallor, lymphadenopathy, carotid bruit Respiratory system: Bilateral vesicular breath sounds heard, no adventitious breath sounds CVS: S1-S2 heard, no murmurs/rubs/gallop GI: Soft, nontender, no organomegaly, no guarding/rigidity, bowel sounds present Neuro: No focal neurological deficits present Extremities: No edema cyanosis clubbing Musculoskeletal: Left lower leg has odorous and purulent discharge with macerated skin extending from the distal 3rd of the tibia extending to the ankle in encompassing the entire lower extremity circumferentially, currently has surgical dressing. Skin: Warm and dry Coagulation Studies Laboratory Tests Test 11/19/24 14:20 Prothrombin Time 13.0 SECONDS (9.0-12.0) H INR International Normalized Ratio 1.3 INR Activated Partial Thromboplast Time 29 SECONDS (22-32) Coagulation Comments Assessment Assessment This is a 59-year-old female with past medical history of hypertension, rheumatoid arthritis came to the ER with a chief complaint of left lower leg wound which appears to be infected. Patient is being admitted for sepsis secondary to infected wound. Patient underwent debridement on 11/21/2024. Plan Plan Left lower leg infected wound Chronic nonhealing ulcer status post debridement on 11/21/24 Sepsis secondary to above, POA Charcot arthropathy PAD, ruled out Normal anion gap acidosis WBC count normal, procalcitonin, downtrending and CRP, continue to follow daily prolactin Continue IV fluids at 50 cc/hour Continue IV vancomycin and Zosyn (day 4) Culturelle b.i.d. Wound care Follow up with the wound and blood culture Management per Dr. Best's recommendations ID consulted in view of antibiotic management, awaiting recommendations HLD Continue atorvastatin Elevated proBNP Probably inflammatory ProBNP is 819 Echo: EF: 70-75%, LVOT obstruction Patient does not appear to be fluid overloaded, continue NS@ 50 mL/hour Elevated transaminases, downtrending Elevated alkaline phosphatase Hyperbilirubinemia Probably reactive, downtrending Continue to monitor CMP If continues to be elevated we will do further workup Ultrasound reveals parenchymal disease of the liver Hypomagnesemia Hypokalemia Magnesium and potassium improving On potassium replacement protocol Follow up with repeat labs. History of hypertension Currently blood pressure is in the normal range Home meds: Continue Metoprolol and valsartan Hold for SBP less than 90 mmHg Hypoalbuminemia Albumin 1.8 Depression Started on paroxetine 10 mg once daily History of peripheral neuropathy Code status: DNR DVT prophylaxis: Heparin Diet: Regular diet Disposition: Continue care in surgical floor, awaiting ID recommendations Carlota Hernández MD Internal Medicine, PGY 1 Date of Service: November 23, 2024 Billing Provider: ABHILASH BAILEY MD, SIVA, RES November 23, 2024 16:22
[2024-11-23 18:00] VITALS: BP 125/77; PULSE 90; RESP 20; TEMP 98; O2SAT 96
[2024-11-23 20:00] VITALS: RESP 20; O2SAT 96
[2024-11-23] MEDS: K and/or MAG REPLACEMENT MC SCH (20:00)
[2024-11-23] MEDS: lactobacillus rhamnosus 10,000 MMU CELLS/CAPSULE PO SCH (20:10)
--- NOTE | 2024-11-23 21:03 | PROGRESS NOTE ---
Progress Note ID Providers to CC ~ Progress Note Progress Note: doing well/wound care to evaluate for vac AMARIS ADAMS MD November 23, 2024 21:03
[2024-11-23 22:56] VITALS: BP 125/80; PULSE 85; RESP 15; TEMP 97.9; O2SAT 95
[2024-11-24 06:00] VITALS: BP 126/91; PULSE 65; RESP 19; TEMP 97.7; O2SAT 97
[2024-11-24 06:29] LABS: BASOPHILS % (AUTO) 0.5 % (0-1); EOSINOPHILS # (AUTO) 0.1 X10'3 (0-0.9); EOSINOPHILS % (AUTO) 1.9 % (0-6); HEMOGLOBIN 12.1 g/dl (12.0-16.0); LYMPHOCYTES # (AUTO) 1.5 X10'3 (1.1-4.8); LYMPHOCYTES % (AUTO) 28.8 % (21-51); MEAN CORPUSCULAR HEMOGLOBIN 32.6 PG (27.0-31.0); MEAN CORPUSCULAR HGB CONC 33.6 g/dL (33.0-36.5); MEAN CORPUSCULAR VOLUME 97.2 FL (78-98); MEAN PLATELET VOLUME 7.5 FL (7.4-10.4); MONOCYTES # (AUTO) 0.6 X10'3 (0-0.9); MONOCYTES % (AUTO) 10.3 % (2-12); NEUTROPHILS # (AUTO) 3.1 X10'3 (1.8-7.7); NEUTROPHILS % (AUTO) 58.5 % (42-75); PLATELET COUNT 262 X10'3 (140-440); RED CELL DISTRIBUTION WIDTH 16.7 % (11.5-14.5); WHITE BLOOD COUNT 5.3 X10'3 (4.5-11.0)
[2024-11-24 06:43] LABS: ALANINE AMINOTRANSFERASE 74 U/L (12-78); ALBUMIN 1.4 G/DL (3.4-5.0); ALBUMIN/GLOBULIN RATIO 0.4 (1.1-1.5); ALKALINE PHOSPHATASE 161 IU/L (46-116); ANION GAP 6 (8-16); ASPARTATE AMINO TRANSFERASE 38 U/L (10-37); BILIRUBIN,TOTAL 1.1 MG/DL (0.1-1.0); BLOOD UREA NITROGEN 11 MG/DL (7-18); BUN/CREATININE RATIO 10.8 (10.0-20.0); CALCIUM 7.3 MG/DL (8.5-10.1); CHLORIDE 108 MMOL/L (99-107); CREATININE 1.02 MG/DL (0.40-0.90); GLUCOSE 77 MG/DL (70-104); MAGNESIUM 1.4 MG/DL (1.5-2.4); POTASSIUM 3.7 MMOL/L (3.5-5.1); SODIUM 141 MMOL/L (135-145); TOTAL CARBON DIOXIDE 27.2 MMOL/L (24-32); TOTAL PROTEIN 4.6 G/DL (6.4-8.2); eCRCL 52 ML/MIN; eGFR 56 ML/MIN
[2024-11-24] MEDS: LIDOcaine 4% (40 mg/ml) topical solution 50ml TP SCH (08:00)
[2024-11-24] MEDS: magnesium Cl slow-release 64mg tablet PO PRN (08:43)
[2024-11-24 14:37] VITALS: BP 140/96; PULSE 86; RESP 16; TEMP 98.2; O2SAT 92
--- NOTE | 2024-11-24 16:43 | PROGRESS NOTE- Residence ---
Progress Note - Resident Providers to CC Resident Creating Document: CARLOTA HERNÁNDEZ RES CC: ABHILASH BAILEY MD ~ Antibiotic Timeout Antibiotic Ordered?: Yes Subjective Patient examined at bedside. Patient says her pain is well-controlled. Patient continues to be in low mood. Dr. Best recommended wound VAC. Wound care stated that wound VAC would not be a great idea after embolization of the wound in the moment. Objective Vital Signs Date Time Temp Pulse Resp B/P (MAP) Pulse Ox O2 Delivery O2 Flow Rate FiO2 11/24/24 14:37 98.2 86 16 140/96 (111) 92 Room Air 11/23/24 22:56 0.0 Result Diagram: 11/24/24 0532 11/24/24 0532 General: Alert, awake, oriented, not in acute distress HEENT: PERRLA, no icterus, pallor, lymphadenopathy, carotid bruit Respiratory system: Bilateral vesicular breath sounds heard, no adventitious breath sounds CVS: S1-S2 heard, no murmurs/rubs/gallop GI: Soft, nontender, no organomegaly, no guarding/rigidity, bowel sounds present Neuro: No focal neurological deficits present Extremities: No edema cyanosis clubbing Musculoskeletal: Left lower leg currently has surgical dressing. Skin: Warm and dry Coagulation Studies Laboratory Tests Test 11/19/24 14:20 Prothrombin Time 13.0 SECONDS (9.0-12.0) H INR International Normalized Ratio 1.3 INR Activated Partial Thromboplast Time 29 SECONDS (22-32) Coagulation Comments Assessment Assessment This is a 59-year-old female with past medical history of hypertension, rheumatoid arthritis came to the ER with a chief complaint of left lower leg wound which appears to be infected. Patient is being admitted for sepsis secondary to infected wound. Patient underwent debridement on 11/21/2024. Plan Plan Left lower leg infected wound Chronic nonhealing ulcer status post debridement on 11/21/24 Sepsis secondary to above, POA Charcot arthropathy PAD, ruled out Normal anion gap acidosis WBC count normal, procalcitonin, downtrending and CRP, continue to follow daily procalcitonin and CRP Continue IV fluids at 50 cc/hour Continue IV vancomycin and Zosyn (day 5) Culturelle b.i.d. Wound care Follow up with the wound and blood culture Management per Dr. Brusett's recommendations ID consulted in view of antibiotic management, awaiting recommendations HLD Continue atorvastatin Elevated proBNP Probably inflammatory ProBNP is 819 Echo: EF: 70-75%, LVOT obstruction Patient does not appear to be fluid overloaded, continue NS@ 50 mL/hour Elevated transaminases, downtrending Elevated alkaline phosphatase Hyperbilirubinemia Probably reactive, downtrending Continue to monitor CMP Ultrasound reveals parenchymal disease of the liver Hypomagnesemia Hypokalemia Magnesium and potassium improving On potassium replacement protocol Follow up with repeat labs. History of hypertension Currently blood pressure is in the normal range Home meds: Continue Metoprolol and valsartan Hold for SBP less than 90 mmHg Hypoalbuminemia Albumin 1.8 Depression Started on paroxetine 10 mg once daily History of peripheral neuropathy Code status: DNR DVT prophylaxis: Heparin Diet: Regular diet Disposition: Continue care in surgical floor, awaiting ID recommendations Carlota Hernández MD Internal Medicine, PGY 1 Date of Service: November 24, 2024 Billing Provider: ABHILASH BAILEY MD, SIVA, RES November 24, 2024 16:43
[2024-11-24 18:00] VITALS: BP 134/78; PULSE 98; RESP 17; TEMP 97.6; O2SAT 95
[2024-11-24 20:00] VITALS: RESP 17; O2SAT 95
--- NOTE | 2024-11-24 21:37 | PROGRESS NOTE ---
Progress Note ID Providers to CC ~ Progress Note Progress Note: doing well/cont wound care AMARIS ADAMS MD November 24, 2024 21:37
[2024-11-24 22:00] VITALS: BP 129/76; PULSE 65; RESP 14; TEMP 98.5; O2SAT 94
[2024-11-25 06:00] VITALS: BP 134/82; PULSE 76; RESP 14; TEMP 98.2; O2SAT 96
[2024-11-25 08:36] LABS: BASOPHILS % (AUTO) 0.3 % (0-1); EOSINOPHILS # (AUTO) 0.1 X10'3 (0-0.9); EOSINOPHILS % (AUTO) 1.9 % (0-6); HEMATOCRIT 39.7 % (35.0-45.0); HEMOGLOBIN 13.1 g/dl (12.0-16.0); LYMPHOCYTES % (AUTO) 12.5 % (21-51); MEAN CORPUSCULAR HEMOGLOBIN 31.9 PG (27.0-31.0); MEAN CORPUSCULAR VOLUME 96.8 FL (78-98); MEAN PLATELET VOLUME 7.4 FL (7.4-10.4); MONOCYTES # (AUTO) 0.6 X10'3 (0-0.9); MONOCYTES % (AUTO) 7.4 % (2-12); NEUTROPHILS % (AUTO) 77.9 % (42-75); PLATELET COUNT 265 X10'3 (140-440); RED CELL DISTRIBUTION WIDTH 16.4 % (11.5-14.5); WHITE BLOOD COUNT 7.7 X10'3 (4.5-11.0)
[2024-11-25 09:00] LABS: ALBUMIN 1.3 G/DL (3.4-5.0); ANION GAP 5 (8-16); BLOOD UREA NITROGEN 8 MG/DL (7-18); BUN/CREATININE RATIO 9.9 (10.0-20.0); CALCIUM 7.4 MG/DL (8.5-10.1); CHLORIDE 110 MMOL/L (99-107); CREATININE 0.81 MG/DL (0.40-0.90); GLUCOSE 78 MG/DL (70-104); POTASSIUM 3.8 MMOL/L (3.5-5.1); SODIUM 141 MMOL/L (135-145); eCRCL 65 ML/MIN; eGFR 73 ML/MIN
[2024-11-25 09:03] LABS: C-REACTIVE PROTEIN 1.24 MG/DL (0.0-0.5); POTASSIUM 3.8 MMOL/L (3.5-5.1)
[2024-11-25 10:00] VITALS: BP 145/91; PULSE 95; RESP 16; TEMP 98.1; O2SAT 95
[2024-11-25 11:14] VITALS: RESP 16; O2SAT 95
--- NOTE | 2024-11-25 15:10 | PROGRESS NOTE ---
Progress Note ID Providers to CC ~ Progress Note Progress Note: doing well/cont supportive care AMARIS ADAMS MD November 25, 2024 15:10
--- NOTE | 2024-11-25 17:54 | PROGRESS NOTE- Residence ---
Progress Note - Resident Providers to CC Resident Creating Document: MICHAEL STERLING RES ~ Antibiotic Timeout Antibiotic Ordered?: Yes Subjective Patient examined at bedside. I spoke with Dr. Juan over the phone regarding her antibiotic regime. Given the negative cultures, ID recommended a total seven day course of p.o antibiotics i.e. levofloxacin and doxycycline. The patient is clinically stable and ready for discharge, pending final clearance from her surgeon. Objective Vital Signs Date Time Temp Pulse Resp B/P (MAP) Pulse Ox O2 Delivery O2 Flow Rate FiO2 11/25/24 16:47 18 11/25/24 11:14 95 Room Air 11/25/24 10:00 98.1 95 145/91 (109) 11/23/24 22:56 0.0 General: Alert, awake, oriented, not in acute distress HEENT: PERRLA, no icterus, pallor, lymphadenopathy, carotid bruit Respiratory system: Bilateral vesicular breath sounds heard, no adventitious breath sounds CVS: S1-S2 heard, no murmurs/rubs/gallop GI: Soft, nontender, no organomegaly, no guarding/rigidity, bowel sounds present Neuro: No focal neurological deficits present Extremities: No edema cyanosis clubbing Musculoskeletal: Left lower leg currently has surgical dressing. Skin: Warm and dry Result Diagram: 11/25/24 0825 11/25/24 0825 Coagulation Studies Laboratory Tests Test 11/19/24 14:20 Prothrombin Time 13.0 SECONDS (9.0-12.0) H INR International Normalized Ratio 1.3 INR Activated Partial Thromboplast Time 29 SECONDS (22-32) Coagulation Comments Advance Care Planning Advanced Care plannin - 30 Minutes Assessment Assessment This is a 59-year-old female with past medical history of hypertension, rheumatoid arthritis came to the ER with a chief complaint of left lower leg wound which appears to be infected. Patient is being admitted for sepsis secondary to infected wound. Patient underwent debridement on 11/21/2024. Plan Plan Left lower leg infected wound Chronic nonhealing ulcer status post debridement on 11/21/24 Sepsis secondary to above, POA Charcot arthropathy PAD, ruled out Normal anion gap acidosis WBC count normal, procalcitonin, downtrending and CRP, continue to follow daily procalcitonin and CRP Continue IV fluids at 50 cc/hour Vancomycin and Zosyn discontinued, per ID recommendations Levaquin and doxycycline p.o. initiated Culturelle b.i.d. Continue Wound care HLD Continue atorvastatin Elevated proBNP Probably inflammatory ProBNP is 819 Echo: EF: 70-75%, LVOT obstruction Patient does not appear to be fluid overloaded, continue NS@ 50 mL/hour Elevated transaminases, downtrending Elevated alkaline phosphatase Hyperbilirubinemia Probably reactive, downtrending Continue to monitor CMP Ultrasound reveals parenchymal disease of the liver Hypomagnesemia Hypokalemia Magnesium and potassium improving On potassium replacement protocol Follow up with repeat labs. History of hypertension Currently blood pressure is in the normal range Home meds: Continue Metoprolol and valsartan Hold for SBP less than 90 mmHg Hypoalbuminemia Albumin 1.8 Depression Started on paroxetine 10 mg once daily History of peripheral neuropathy Code status: DNR DVT prophylaxis: Heparin Diet: Regular diet Disposition: The patient is clinically stable and ready for discharge, pending final clearance from her surgeon. Michael Sterling Internal Medicine Resident Date of Service: November 25, 2024 Billing Provider: ABHILASH BAILEY MD,MICHAEL, RES November 25, 2024 17:54
[2024-11-25 18:00] VITALS: BP 114/71; PULSE 83; RESP 16; TEMP 97.7; O2SAT 95
[2024-11-25 20:00] VITALS: RESP 18; O2SAT 96
[2024-11-25 22:00] VITALS: BP 116/76; PULSE 87; RESP 16; TEMP 97.5; O2SAT 95
[2024-11-26 05:00] VITALS: BP 116/68; PULSE 86; RESP 20; TEMP 97.6; O2SAT 97
[2024-11-26 06:55] LABS: C-REACTIVE PROTEIN 1.11 MG/DL (0.0-0.5); POTASSIUM 3.3 MMOL/L (3.5-5.1)
[2024-11-26] MEDS ORDERED: DOXY-224 PO (07:42)
[2024-11-26] MEDS ORDERED: ATOR20TA66 PO (07:42)
[2024-11-26] MEDS ORDERED: PARO10TA4 PO (07:42)
[2024-11-26] MEDS ORDERED: LACT1CAP26 PO (07:42)
[2024-11-26] MEDS ORDERED: LEVO-65 PO (07:42)
[2024-11-26 08:00] VITALS: RESP 20; O2SAT 97
[2024-11-26] MEDS: DOXYCYCLINE 100MG CAPSULE PO SCH (08:23)
[2024-11-26] MEDS: potassium Cl 20 mEq SR tablet PO PRN ×2 (08:28→15:44)
[2024-11-26] MEDS ORDERED: VANCOMYCIN LEVEL IV ONE (09:30)
[2024-11-26 10:00] VITALS: BP 78/47; PULSE 78; RESP 18; TEMP 97.6; O2SAT 96
[2024-11-26] MEDS: levoFLOXACIN 500mg tablet PO SCH (10:50)
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
[2024-11-26] MEDS: normal saline 1000ml 1,000 ML IV ONE ×3 (13:16→20:24)
[2024-11-26] MEDS ORDERED: magnesium sulf-water 4G/100mL 100 ML IV PRN (15:10)
[2024-11-26] MEDS ORDERED: potassium Cl 20 mEq SR tablet PO PRN (15:10)
[2024-11-26] MEDS ORDERED: potassium Cl 40MEQ/1/2NS 520ml 520 ML IV PRN (15:10)
[2024-11-26] MEDS ORDERED: magnesium sulf-water 2g/50mL 50 ML IV PRN (15:10)
[2024-11-26] MEDS ORDERED: magnesium Cl slow-release 64mg tablet PO PRN (15:10)
[2024-11-26 15:52] LABS: HEMATOCRIT 35.5 % (35.0-45.0); HEMOGLOBIN 11.7 g/dl (12.0-16.0); MEAN CORPUSCULAR HEMOGLOBIN 32.4 PG (27.0-31.0); MEAN CORPUSCULAR VOLUME 98.2 FL (78-98); MEAN PLATELET VOLUME 7.7 FL (7.4-10.4); PLATELET COUNT 268 X10'3 (140-440); RED BLOOD COUNT 3.61 X10'6 (4.20-5.60); RED CELL DISTRIBUTION WIDTH 16.3 % (11.5-14.5); WHITE BLOOD COUNT 7.2 X10'3 (4.5-11.0)
[2024-11-26 16:00] LABS: ANION GAP 6 (8-16); BLOOD UREA NITROGEN 10 MG/DL (7-18); CALCIUM 6.7 MG/DL (8.5-10.1); CHLORIDE 109 MMOL/L (99-107); CREATININE 0.91 MG/DL (0.40-0.90); GLUCOSE 97 MG/DL (70-104); POTASSIUM 3.3 MMOL/L (3.5-5.1); SODIUM 140 MMOL/L (135-145); eCRCL 58 ML/MIN; eGFR 63 ML/MIN
[2024-11-26 16:40] LABS: ANISOCYTOSIS 1+; PLATELET ESTIMATE NORMAL; POLYCHROMASIA FEW
--- NOTE | 2024-11-26 18:08 | PROGRESS NOTE- Residence ---
Progress Note - Resident Providers to CC Resident Creating Document: CARLOTA HERNÁNDEZ RES CC: ABHILASH BAILEY MD ~ Antibiotic Timeout Antibiotic Ordered?: Yes Subjective Patient examined at bedside. Patient will be observed for 24 more hours before discharge. After talking with the rn case management patient can go home with home health for dressing change on Thursday and to resume daily dressings at wound care clinic with the appointments that would be fixed with the rn case management. Patient had low blood pressure readings in the range of 70/60 today. Objective Vital Signs Date Time Temp Pulse Resp B/P (MAP) Pulse Ox O2 Delivery O2 Flow Rate FiO2 11/26/24 17:44 18 11/26/24 10:00 97.6 78 78/47 (57) 96 Room Air 11/25/24 20:00 0.0 Result Diagram: 11/26/24 1527 11/26/24 1527 General: Alert, awake, oriented, not in acute distress HEENT: PERRLA, no icterus, pallor, lymphadenopathy, carotid bruit Respiratory system: Bilateral vesicular breath sounds heard, no adventitious breath sounds CVS: S1-S2 heard, no murmurs/rubs/gallop GI: Soft, nontender, no organomegaly, no guarding/rigidity, bowel sounds present Neuro: No focal neurological deficits present Extremities: No edema cyanosis clubbing Musculoskeletal: Left lower leg currently has surgical dressing. Skin: Warm and dry Coagulation Studies Laboratory Tests Test 11/19/24 14:20 Prothrombin Time 13.0 SECONDS (9.0-12.0) H INR International Normalized Ratio 1.3 INR Activated Partial Thromboplast Time 29 SECONDS (22-32) Coagulation Comments Assessment Assessment This is a 59-year-old female with past medical history of hypertension, rheumatoid arthritis came to the ER with a chief complaint of left lower leg wound which appears to be infected. Patient is being admitted for sepsis secondary to infected wound. Patient underwent debridement on 11/21/2024. Plan Plan Left lower leg infected wound Chronic nonhealing ulcer status post debridement on 11/21/24 Sepsis secondary to above, POA Charcot arthropathy PAD, ruled out Normal anion gap acidosis WBC count normal, procalcitonin, downtrending and CRP, continue to follow daily procalcitonin and CRP Continue IV fluids at 50 cc/hour Levaquin and doxycycline p.o. initiated per ID recommendations Culturelle b.i.d. Continue Wound care Hypovolemia Patient had low blood pressure in the range of 70/40, received 2 units bolus Patient's blood pressure improved with the above intervention Continue to monitor vitals HLD Continue atorvastatin Elevated proBNP Probably inflammatory ProBNP is 819 Echo: EF: 70-75%, LVOT obstruction Patient does not appear to be fluid overloaded, continue NS@ 50 mL/hour Elevated transaminases, downtrending Elevated alkaline phosphatase Hyperbilirubinemia Probably reactive, downtrending Continue to monitor CMP Ultrasound reveals parenchymal disease of the liver Hypomagnesemia Hypokalemia Magnesium and potassium improving On potassium replacement protocol Follow up with repeat labs. History of hypertension Currently blood pressure is in the normal range Home meds: Continue Metoprolol and valsartan Hold for SBP less than 90 mmHg Hypoalbuminemia Albumin 1.8 Depression Started on paroxetine 10 mg once daily History of peripheral neuropathy Code status: DNR DVT prophylaxis: Heparin Diet: Regular diet Disposition: Continue care in surgical floor, awaiting discharge per surgical recommendations Carlota Hernández MD Internal Medicine, PGY 1 Date of Service: November 26, 2024 Billing Provider: ABHILASH BAILEY MD, SIVA, RES November 26, 2024 18:08
[2024-11-26 19:00] VITALS: BP 91/59; PULSE 69; RESP 18; TEMP 97.7; O2SAT 94
[2024-11-26] MEDS: normal saline 1000ml 1,000 ML IV SCH (19:24)
[2024-11-26 20:00] VITALS: RESP 18; O2SAT 96
[2024-11-26 22:00] VITALS: BP 88/49; PULSE 70; RESP 18; TEMP 97.7; O2SAT 93
[2024-11-27 05:00] VITALS: BP 109/45; PULSE 68; RESP 16; TEMP 97.1; O2SAT 98
[2024-11-27 06:59] LABS: HEMATOCRIT 32.6 % (35.0-45.0); HEMOGLOBIN 10.8 g/dl (12.0-16.0); MEAN CORPUSCULAR HEMOGLOBIN 32.4 PG (27.0-31.0); MEAN CORPUSCULAR VOLUME 98.1 FL (78-98); MEAN PLATELET VOLUME 7.8 FL (7.4-10.4); PLATELET COUNT 229 X10'3 (140-440); RED BLOOD COUNT 3.33 X10'6 (4.20-5.60); RED CELL DISTRIBUTION WIDTH 16.4 % (11.5-14.5); WHITE BLOOD COUNT 5.8 X10'3 (4.5-11.0)
[2024-11-27 07:15] LABS: ANION GAP 7 (8-16); BLOOD UREA NITROGEN 12 MG/DL (7-18); BUN/CREATININE RATIO 11.3 (10.0-20.0); CALCIUM 7.1 MG/DL (8.5-10.1); CHLORIDE 111 MMOL/L (99-107); CREATININE 1.06 MG/DL (0.40-0.90); GLUCOSE 79 MG/DL (70-104); POTASSIUM 3.9 MMOL/L (3.5-5.1); SODIUM 140 MMOL/L (135-145); TOTAL CARBON DIOXIDE 21.6 MMOL/L (24-32); eCRCL 50 ML/MIN; eGFR 53 ML/MIN
[2024-11-27 08:12] LABS: TOTAL CELLS COUNTED 100
[2024-11-27 08:13] LABS: ANISOCYTOSIS 1+; PLATELET ESTIMATE NORMAL; POLYCHROMASIA FEW; SMUDGE CELLS 2+
[2024-11-27 08:30] VITALS: RESP 16; O2SAT 98
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
[2024-11-27 10:58] VITALS: BP 96/58; PULSE 68; RESP 16; TEMP 98.2; O2SAT 95
[2024-11-27 13:23] VITALS: RESP 16
[2024-11-27] MEDS ORDERED: HYDR-3965 PO (16:12)
--- NOTE | 2024-11-27 18:52 | DISCHARGE SUMMARY-Residence ---
Discharge Summary Providers to CC Resident Creating Document: CARLOTA HERNÁNDEZ, RES CC: ABHILASH BAILEY MD ~ Discharge Summary Assessment This is a 59-year-old female with past medical history of hypertension, rheumatoid arthritis came to the ER with a chief complaint of left lower leg wound which appears to be infected. Patient is being admitted for sepsis secondary to infected wound. Patient underwent debridement on 11/21/2024. Admission Diagnosis: sepsis/ Lower extremity wound Hospital Course DATE OF ADMISSION: 11/19/24 DATE OF DISCHARGE: 11/27/24 Discharge Diagnosis\Comment: Left lower leg infected wound Chronic nonhealing ulcer status post debridement on 11/21/24 Sepsis secondary to above, POA Charcot arthropathy PAD, ruled out Normal anion gap acidosis Hypovolemia, resolved HLD Elevated proBNP, probably inflammatory Elevated transaminases, reactive-downtrending Hypomagnesemia, hypokalemia Hypertension Hypoalbuminemia Possible depression Peripheral neuropathy Operations\Procedures: Debridement Consultants: Dr. Reid Complications: None Condition on DC: Stable New Medications: Hydrocodone Bit/Acetaminophen 5/325 MG ([place] 5/325 MG) 5 Mg/325 Mg Tablet 1-2 TAB PO Q4-6 hours PRN for moderate or severe pain, #16 TAB Atorvastatin Calcium (Atorvastatin Calcium) 20 Mg Tablet 40 MG PO DAILY for 30 Days, #60 TAB Doxycycline Hyclate (Doxycycline Hyclate) 100 Mg Capsule 100 MG PO BID@0830,1730 for 6 Days, #12 CAP Lactobacillus Rhamnosus (Culturelle) 10 Billion Cell Capsule 64281 MMU PO BID for 30 Days, #60 CAP Levofloxacin (Levofloxacin) 500 Mg Tablet 500 MG PO DAILY@11 for 6 Days, #6 TAB Paroxetine Hcl (PAXIL tablet) 10 Mg Tablet 10 MG PO DAILY for 30 Days, #30 TAB Continued Medications: Bupropion HCl (Bupropion Xl) 300 Mg Tab.er.24h Cyanocobalamin (Vitamin B-12) (Cyanocobalamin Injection) 1,000 Mcg/Ml Vial 1 ML IM Q30D Cyclobenzaprine* (Cyclobenzaprine*) 10 Mg Tablet 1 TAB PO TID Estradiol (Estradiol) 1 Mg Tablet 1 TAB PO DAILY Furosemide (Furosemide) 20 Mg Tablet 1 TAB PO BID PRN for edema Gabapentin (Gabapentin) 600 Mg Tablet Hydrocodone Bit/Acetaminophen (Hydrocodon-Acetaminophn 10-325 tablet) 10mg- 325mg Tablet 1 TAB PO Q4H PRN for pain Ibuprofen (Ibuprofen) 800 Mg Tablet 1 TAB PO TID PRN for pain Metoprolol Succinate (Metoprolol Succinate) 100 Mg Tab.sr.24h 1.5 TAB PO DAILY Omeprazole (Prilosec) 40 Mg Capsule 1 CAP PO DAILY Ondansetron 8mg ODT (Ondansetron Odt) 8 Mg Tab.rapdis Valacyclovir HCl (Valacyclovir) 1,000 Mg Tablet 1 TAB PO DAILY Valsartan (Valsartan) 160 Mg Tablet 1 TAB PO DAILY Discharge Summary: A 51-year-old female with past medical history of hypertension, rheumatoid arthritis presents to the ED with complaints of left lower extremity wound that appears to be infected. Patient had this ulcer for the last two years that had been chronic and nonhealing. At the time of admission patient had unstable vitals and elevated WBC count indicating sepsis. And also had elevated lactic acid and normal anion gap indicating normal anion gap and acidosis. ID was consulted antibiotics were started and changed per their recommendations. Patient was continuously monitored for sepsis, fluids were initiated. Vascular studies ruled out stenosis or thrombosis before consulting with the surgeon. Patient underwent debridement on 11/22/2024 regular dressings were being done, after clearance with the surgeon patient has been discharged. Yesterday on 11/26/2024 due to dehydration patient had low blood pressure readings that resolved with fluid resuscitation. Patient is hemodynamically stable for discharge. Examination at discharge: General: Alert, awake, oriented, not in acute distress HEENT: PERRLA, no icterus, pallor, lymphadenopathy, carotid bruit Respiratory system: Bilateral vesicular breath sounds heard, no adventitious breath sounds CVS: S1-S2 heard, no murmurs/rubs/gallop GI: Soft, nontender, no organomegaly, no guarding/rigidity, bowel sounds present Neuro: No focal neurological deficits present Extremities: No edema cyanosis clubbing Musculoskeletal: Left lower leg currently has surgical dressing. Skin: Warm and dry Labs at discharge: WBC: 5.8, H/H: 10.8/32.6, platelet count: 229 Sodium: 140, potassium: 3.9, BUN: 12, creatinine: 1.06 Imaging: Echo: Overall LVEF is 70-75%. Normal LV size and hyperdynamic function. Mild concentric hypertrophy. Appearance of LVOT obstruction due to hyperdynamic LV function. LV gradient of 11 mmHg and does not increase with Valsalva maneuver. Vascular ultrasound: No right or left femoropopliteal venous thrombosis. Arterial ultrasound: No hemodynamically significant stenosis based on peak systolic velocity criteria. Abdominal ultrasound: Heterogeneous echotexture of the liver suggesting underlying parenchymal disease. No nodular contour appreciated. Cholecystectomy. No right hydronephrosis. Chest x-ray:No acute intrathoracic abnormality. Discharge medications can be found above patient is discharged home with the following recommendations: Follow up with primary care within two weeks of discharge Follow up with Dr. Best (surgeon) within two weeks of discharge Wound care clinic and appointment, recommend daily dressing change We gave you antibiotics for another six days and cholesterol (probiotic). Please maintain compliance We gave you paroxetine for your moved to be a little better, continue the same. We would suggest you consult with a psychiatrist to screen for depression Return to ER or call 911 in view of sudden onset of pain in the leg, any increased pus discharge, fever, chills or rigors. *Problems/Diagnosis: (1) Wound Status: Acute (2) Nonhealing ulcer of right lower extremity (3) Nonhealing ulcer of left lower extremity Total Time Spent on D/C: > 30 Minutes Date of Service: Nov 27, 2024 Billing Provider: ABHILASH BAILEY MD, SIVA, RES Nov 27, 2024 18:48
== END 2024-11-27 13:30 | disposition home health service (06) | DRG 854 ==
LOC: ER 13:09 → ED HOLD 19:54 → SUR 3N 11-20 04:23
PROVIDERS: ADMIT Internal Medicine; ATTEND Internal Medicine
PROC: 0JBP0ZZ Excision of Left Lower Leg Subcutaneous Tissue and Fascia, Open Approach (ICD-10-PCS; principal; 2024-11-21 13:20)
DX: A41.9 Sepsis, unspecified organism (principal); E87.20 Acidosis, unspecified; L97.929 Non-pressure chronic ulcer of unspecified part of left lower leg with unspecified severity; M06.9 Rheumatoid arthritis, unspecified; E78.5 Hyperlipidemia, unspecified; E87.6 Hypokalemia; I10 Essential (primary) hypertension; Z66 Do not resuscitate; E88.09 Other disorders of plasma-protein metabolism, not elsewhere classified; G62.9 Polyneuropathy, unspecified; E83.42 Hypomagnesemia; R74.8 Abnormal levels of other serum enzymes; E80.6 Other disorders of bilirubin metabolism; R74.01 Elevation of levels of liver transaminase levels; F32.A Depression, unspecified; E86.1 Hypovolemia; Z79.899 Other long term (current) drug therapy
CPT/HCPCS: 93306; 96365; 96375; 99291; Z7506; 36415; 71045; 76700; 80048; 80053; 80061; 80202; 80305; 80320; 81001; 82948; 83036; 83605; 83735; 83880; 84132; 84145; 84484; 85007; 85025; 85610; 85651; 85730; 86140; 87040; 87081; 93005; 93925; 93970; A4615; A4618; A6196; A6223; A6250; A6253; A6258; A6446; A6449; A7000; G0378; J0131; J1100; J1171; J1200; J1644; J2003; J2250; J2270; J2405; J2543; J2704; J2765; J3010; J3370; J3420; J3480; J3490; J7030; J7040; J7070